=== PATIENT | male | born 1955 | race Caucasian/White ===

== ENCOUNTER 2023-07-16 10:51 | Emergency (ER) | payer OTHER ==
[~2023-07-16] VITALS: Ht 177.8 cm; Wt 83.5 kg
[2023-07-16 12:15] LABS: Source, Urine Clean Catch
[2023-07-16 12:18] LABS: Appearance, Urine Clear (Clear); Bilirubin, Urine Neg (Neg); Blood, Urine Neg (Neg); Glucose Qualitative, Urine Neg (Neg); Ketones, Urine 1+ (Neg); Leukocyte Esterase, Urine Neg (Neg); Nitrite, Urine Neg (Neg); Protein, Urine Neg (Neg); Urobilinogen, Urine NORM (Normal); pH, Urine 6.5 (5.0-8.0)
[2023-07-16 12:23] LABS: BASOPHILS ABSOLUTE AUTO 0.06 K/mm3 (0.00-0.23); BASOPHILS PERCENT AUTO 1 % (0-2); EOSINOPHILS ABSOLUTE AUTO 0.02 K/mm3 (0.00-0.68); EOSINOPHILS PERCENT AUTO 0 % (0-6); Hematocrit 42.8 % (37.0-53.0); Hemoglobin 14.3 g/dL (13.5-17.5); IMMATURE GRAN ABSOLUTE AUTO 0.08 K/mm3 (0.00-0.10); IMMATURE GRAN PERCENT AUTO 1 % (0-1); LYMPHOCYTES ABSOLUTE AUTO 0.69 K/mm3 (0.84-5.20); LYMPHOCYTES PERCENT AUTO 8 % (21-46); MONOCYTES ABSOLUTE AUTO 0.41 K/mm3 (0.16-1.47); MONOCYTES PERCENT AUTO 5 % (4-13); Mean Corpuscular HGB Conc 33.4 g/dL (31.5-36.5); Mean Corpuscular Volume 93 fL (80-100); Mean Platelet Volume 9.1 fL (9.1-12.4); NEUTROPHILS ABSOLUTE AUTO 7.81 K/mm3 (1.96-9.15); NEUTROPHILS PERCENT AUTO 86 % (41-73); Platelet Count 236 K/mm3 (150-400); RDW Coefficient Variation 14.6 % (11.7-14.2); RDW Standard Deviation 49.7 fL (35.1-46.3); Red Blood Cell Count 4.61 M/mm3 (4.30-5.90); White Blood Cell Count 9.07 K/mm3 (4.00-11.30)
[2023-07-16 12:27] LABS: Color, Urine Pale Yellow (P-Yellow)
--- NOTE | 2023-07-16 12:29 | NUR ---
Pt. is awake in bed and welcomes my visit. Pts. Spouse and DIL are present. Facilitated a medical update with the DIL as well as a life review. Pt. is pleasant but displays evidence of being tired. Family verbalized that the Pt. had experienced a seizure at home. Prayed with the Pt. and family. Pt. and DIL verbalize gratitude for the spiritual care visit. Will continue to be available to the Pt. and family.
[2023-07-16 12:52] LABS: Albumin, Blood 3.5 g/dL (3.4-5.0); Bilirubin, Total 0.4 mg/dL (0.1-1.0); Bun/Creatinine Ratio 15.9 (12.0-20.0); Calcium, Blood 9.3 mg/dL (8.5-10.1); Creatinine, Blood 1.13 mg/dL (0.60-1.20); Globulin, Blood 3.4 g/dL (2.2-4.0); Magnesium, Blood 2.5 mg/dL (1.6-2.4); Potassium, Blood 4.3 mmol/L (3.5-5.5); Total Protein, Blood 6.9 g/dL (6.4-8.2)
[2023-07-16] MEDS ORDERED: TEMOZOLOMIDE140 MG PO (13:39)
[2023-07-16] MEDS ORDERED: DEXA2 PO (13:40)
[2023-07-16] MEDS ORDERED: FAMO20 PO (13:40)
[2023-07-16] MEDS ORDERED: SEN-O-TAB8.6 MG PO (13:41)
[2023-07-16] MEDS ORDERED: LACOSAMIDE200 M1 PO (13:42)
[2023-07-16] MEDS ORDERED: ONELAX10 MG (13:43)
[2023-07-16] MEDS ORDERED: DULCOLAX400 MG/5 M PO (13:43)
[2023-07-16] MEDS ORDERED: ZOFRAN8 MG PO (13:44)
[2023-07-16] MEDS ORDERED: LEVETIRACETAM50014 PO (13:44)
[2023-07-16] MEDS ORDERED: OMEP20ER PO (13:45)
[2023-07-16] MEDS ORDERED: OLMESARTAN MEDO20 MG PO (13:46)
[2023-07-16] MEDS ORDERED: HYDCHL25 PO (13:47)
[2023-07-16] MEDS ORDERED: FISH OIL 1,2001 EAC7 PO (13:48)
[2023-07-16] MEDS ORDERED: CLOBAZAM10 MG PO (14:28)
[2023-07-16] MEDS ORDERED: Ativan1 MG PO (14:28)
[2023-07-16 14:45] VITALS: BP 107/73
== END 2023-07-16 14:55 | disposition home or self-care (01) ==
LOC: ER 10:51
PROVIDERS: Student in an Organized Health Care Education/Training Program
DX: G40.89 Other seizures (principal); C71.9 Malignant neoplasm of brain, unspecified; Z79.52 Long term (current) use of systemic steroids; Z79.899 Other long term (current) drug therapy
CPT/HCPCS: 70450; 71045; 80053; 81003; 83735; 85025; 93005; 93010; 96360; 99284-25; J7030